=== PATIENT | female | born 1995 | race Hispanic/Latino ===

== ENCOUNTER 2021-03-28 01:22 | Emergency (ER) | payer BC, MEDICAID | END 2021-03-28 02:01 | disposition home or self-care (01) | LOC: CSHERS 01:22 | DX: R00.2 Palpitations (principal); J45.909 Unspecified asthma, uncomplicated | CPT/HCPCS: 93005; 93010 ==

== ENCOUNTER 2022-03-22 14:20 | Day surgery (SDC) | payer MEDICAID, OTHER ==
[2022-03-22 15:10] LABS: #Eosinphils 0.2 10x3/uL (0.0-0.5); #Monocytes 0.4 10x3/uL (0.0-1.1); #Neutrophils 4.6 10x3/uL (1.5-8.4); %Basophils 0.1 % (0.0-2.0); %Eosinophils 2.5 % (0.0-6.0); %Monocytes 5.4 % (0.0-10.0); %Neutrophils 64.7 % (40.0-75.0); Hemoglobin 10.8 g/dL (12.0-15.5); Mean Corpuscular HGB CONC 32.9 g/dL (32.0-36.0); Mean Corpuscular Hemoglobin 28.6 pg (27.0-33.0); Mean Platelet Volume 11.5 fl (7.4-10.4); Platelet Count 200 10x3/uL (150-450); RBC Distribution Width 14.1 % (11.5-14.5); Red Blood Cell (RBC) Count 3.77 10x6/uL (3.90-5.03); White Blood Cell (WBC) Count 7.1 10x3/uL (3.5-10.5)
[2022-03-22 15:11] LABS: Bilirubin Neg (Negative); Blood, Urine Negative (Negative); Clarity Slightly Cloudy (Clear); Glucose, Urine (Dipstick) Normal (Negative); Ketone, Urine Negative (Negative); Leukocyte 500 (Negative); Nitrite Negative (Negative); Protein, Urine (Dipstick) 15 mg/dl (Neg-Trace); Specific Gravity, Urine 1.025 (1.005-1.030)
[2022-03-22 15:30] LABS: ALT (SGPT) 11 U/L (8-55); AST (SGOT) 14 U/L (5-34); Albumin 3.6 g/dL (3.5-5.0); Alkaline Phosphatase 67 U/L (40-110); Anion Gap 13 mmol/L (10-20); BUN (Urea Nitrogen) 10 mg/dL (7.0-18.7); Bilirubin, Total 0.3 mg/dL (0.2-1.2); Calc. Creatinine Clearance 0 mL/min (70-130); Calcium 9.3 mg/dL (7.8-10.44); Carbon Dioxide 19 mmol/L (22-29); Chloride 111 mmol/L (98-107); Estimated GFR 123; Globulin 3.3 g/dL (2.4-3.5); Glucose 102 mg/dL (70-105); Lipase 27 U/L (8-78); Potassium 4.1 mmol/L (3.5-5.1); Protein, Total 6.9 g/dL (6.0-8.3); Sodium 139 mmol/L (136-145)
[2022-03-22 15:45] LABS: RBC/HPF 0-3 HPF (0-3); WBC/HPF 21-50 HPF (0-3)
[2022-03-22 15:46] LABS: Bacteria/HPF 1+ HPF (None Seen)
[2022-03-22 16:25] VITALS: BMI 35.4
[2022-03-22] MEDS ORDERED: hydrALAZINE 20 MG/ML VIAL SLOW IVP PRN (17:13)
[2022-03-22] MEDS ORDERED: metroNIDAZOLE 500 MG TAB PO SCH (21:00)
[2022-03-22] MEDS ORDERED: Nitrofurantoin Monohyd/M-Cryst 100 MG CAP PO SCH (21:00)
== END 2022-03-22 20:25 | disposition home or self-care (01) ==
LOC: CSHLD/OP 14:20 → CSHERS 14:20 → EDSTATUS 15:17 → CSHLD/OP 20:25
PROVIDERS: ATTEND Family Medicine
DX: O23.43 Unspecified infection of urinary tract in pregnancy, third trimester (principal); N39.0 Urinary tract infection, site not specified; O23.593 Infection of other part of genital tract in pregnancy, third trimester; B96.89 Other specified bacterial agents as the cause of diseases classified elsewhere; O99.891 Other specified diseases and conditions complicating pregnancy; N89.8 Other specified noninflammatory disorders of vagina; O99.013 Anemia complicating pregnancy, third trimester; D64.9 Anemia, unspecified; Z3A.28 28 weeks gestation of pregnancy; Z79.899 Other long term (current) drug therapy; Z91.018 Allergy to other foods; Z88.0 Allergy status to penicillin
CPT/HCPCS: 36415; 80053; 81003; 81015; 83690; 85025; 87480; 87510; 87660; 99283

== ENCOUNTER 2024-01-21 02:40 | Observation (INO) | payer MEDICAID, OTHER ==
[2024-01-21] MEDS ORDERED: traMADol HCl 50 MG TAB PO PRN (08:20)
[2024-01-21] MEDS ORDERED: Senokot S 8.6-50 MG TAB PO PRN (08:20)
[2024-01-21] MEDS: Ondansetron ODT 4 MG TAB PO PRN (09:40)
[2024-01-21] MEDS: Famotidine 20 MG TAB PO PRN (09:41)
[2024-01-21] MEDS: Acetaminophen 500 MG TAB PO PRN (12:13)
[2024-01-21] MEDS ORDERED: Morphine 4 MG/ML VIAL SLOW IVP PRN (12:46)
[2024-01-21] MEDS: HYDROcodone/Acetaminophen 5/325 mg Tablet PO PRN (14:04)
[2024-01-21] MEDS: Ibuprofen 800 MG TAB PO SCH ×2 (18:00→20:13)
[2024-01-22 04:30] VITALS: BMI 34.2
[2024-01-22] MEDS: Ibuprofen 800 MG TAB PO SCH (05:56)
[2024-01-22 07:32] LABS: #Basophils 0.05 10x3/uL (0.0-0.2); #Eosinphils 0.25 10x3/uL (0.0-0.5); %Basophils 0.8 % (0.0-2.0); %Eosinophils 4.2 % (0.0-6.0); %Lymphocytes 35.4 % (18.0-47.0); %Monocytes 6.8 % (0.0-10.0); %Neutrophils 52.5 % (40.0-75.0); Hematocrit 33.7 % (34.9-44.5); Hemoglobin 10.5 g/dL (12.0-15.5); Mean Corpuscular HGB CONC 31.2 g/dL (32.0-36.0); Mean Corpuscular Hemoglobin 25.5 pg (27.0-33.0); Mean Platelet Volume 11.4 fL (7.4-10.4); Platelet Count 188 10x3/uL (150-450); RBC Distribution Width 16.1 % (11.5-14.5); Red Blood Cell (RBC) Count 4.11 10x6/uL (3.90-5.03); White Blood Cell (WBC) Count 5.9 10x3/uL (3.5-10.5)
[2024-01-22 09:51] VITALS: BP 112/68; TEMP 98.7
== END 2024-01-22 15:15 | disposition home or self-care (01) ==
LOC: INTOOBSV 03:22 → CSHPP 03:22
PROVIDERS: ADMIT Obstetrics & Gynecology; ATTEND Obstetrics & Gynecology
DX: O46.90 Antepartum hemorrhage, unspecified, unspecified trimester (principal); O00.90 Unspecified ectopic pregnancy without intrauterine pregnancy; Z88.0 Allergy status to penicillin; Z91.018 Allergy to other foods; Z3A.00 Weeks of gestation of pregnancy not specified
CPT/HCPCS: 36415; 84702; 85025; G0378; Q0162